=== PATIENT | male | born 1960 | race Hispanic/Latino ===

== ENCOUNTER 2019-03-23 12:21 | Emergency (ER) | payer OTHER ==
[2019-03-23] MEDS ORDERED: NACL 0.9% 1000 ML 1,000 ML IV ONE (12:59)
[2019-03-23] MEDS ORDERED: ANTIVERT PO ONE (13:00)
--- NOTE | 2019-03-23 13:04 | Emergency Department Report ---
ED Dizziness HPI - General Chief Complaint: Dizziness Stated Complaint: Dizziness Time Seen by Provider: 03/23/19 12:52 Source: patient, EMS Mode of arrival: Stretcher Limitations: No Limitations - History of Present Illness Initial Comments: 59-year-old male with history of hypertension, hypercholesterolemia, presents to ED with complaint of dizziness. Patient states he got up and got into his truck, as he began to back out, he experienced dizziness which she describes as "everything spinning." Patient states he then got out of his car, but was u nable to walk well due to his dizziness, so EMS was called. Patient reports one episode of emesis, denies headache. Patient denies extremity weakness or visual changes. Patient states dizziness is exacerbated by moving his head. MD Complaint: dizziness -: This morning Timing: sudden onset Description: "room spinning" History of Same: No History of Trauma: No Severity: severe Improves With: remaining still Worsens With: movement, position Associated Symptoms: denies: chest pain, confusion, cough, fever/chills, shortness of breath, syncope, weakness - Related Data Home Medications Medication Instructions Recorded Confirmed Last Taken AtorvaSTATin [Lipitor] 10 mg PO QHS 03/23/19 03/23/19 03/23/19 FLUoxetine HCL [Prozac] 10 mg PO QDAY 03/23/19 03/23/19 03/23/19 Lisinopril/Hydrochlorothiazide 1 tab PO QDAY 03/23/19 03/23/19 03/23/19 [Zestoretic 20-12.5 mg] amLODIPine [Norvasc] 30 mg PO DAILY 03/23/19 03/23/19 03/23/19 Allergies Allergy/AdvReac Type Severity Reaction Status Date / Time No Known Allergies Allergy Unverified 03/23/19 12:30 ED Review of Systems ROS: Stated complaint: WEAKNESS Other details as noted in HPI Comment: All other systems reviewed and negative Constitutional: denies: chills, fever Eyes: denies: vision change Respiratory: denies: shortness of breath Cardiovascular: denies: chest pain Gastrointestinal: nausea, vomiting Neurological: vertigo. denies: headache, weakness, numbness, paresthesias, confusion ED Past Medical Hx - Past Medical History Hx Hypertension: Yes Additional medical history: High cholesterol, RBBB - Social History Smoking Status: Current Every Day Smoker Substance Use Type: None - Medications Home Medications: Home Medications Medication Instructions Recorded Confirmed Last Taken Type AtorvaSTATin [Lipitor] 10 mg PO QHS 03/23/19 03/23/19 03/23/19 History FLUoxetine HCL [Prozac] 10 mg PO QDAY 03/23/19 03/23/19 03/23/19 History Lisinopril/Hydrochlorothiazide 1 tab PO QDAY 03/23/19 03/23/19 03/23/19 History [Zestoretic 20-12.5 mg] amLODIPine [Norvasc] 30 mg PO DAILY 03/23/19 03/23/19 03/23/19 History ED Physical Exam - General Limitations: No Limitations General appearance: alert, in no apparent distress - Head Head exam: Present: atraumatic, normocephalic - Eye Eye exam: Present: normal appearance, PERRL, EOMI, nystagmus (mild horizontal) - ENT ENT exam: Present: mucous membranes moist - Neck Neck exam: Present: normal inspection, full ROM - Respiratory Respiratory exam: Present: normal lung sounds bilaterally. Absent: respiratory distress - Cardiovascular Cardiovascular Exam: Present: normal rhythm, bradycardia - GI/Abdominal GI/Abdominal exam: Present: soft. Absent: distended, tenderness - Extremities Exam Extremities exam: Present: normal inspection - Neurological Exam Neurological exam: Present: alert, oriented X3, CN II-XII intact, other ([id number] normal; NIHSS= 0). Absent: motor sensory deficit - Psychiatric Psychiatric exam: Present: normal affect, normal mood - Skin Skin exam: Present: warm, dry, intact, normal color ED Course Vital Signs 03/23/19 03/23/19 03/23/19 12:28 12:30 12:32 Temperature 98.1 F Pulse Rate 56 L 60 Respiratory 16 13 Rate Blood Pressure 120/70 124/73 120/70 O2 Sat by Pulse 97 97 Oximetry 03/23/19 03/23/19 03/23/19 12:42 12:45 13:01 Temperature Pulse Rate 59 L 61 Respiratory 6 L 12 Rate Blood Pressure 140/77 140/77 O2 Sat by Pulse 97 96 95 Oximetry 03/23/19 03/23/19 03/23/19 13:15 13:31 13:49 Temperature Pulse Rate 60 61 62 Respiratory 13 12 10 L Rate Blood Pressure 140/77 140/77 140/77 O2 Sat by Pulse 96 97 98 Oximetry 03/23/19 03/23/19 03/23/19 14:01 14:15 14:31 Temperature Pulse Rate 61 61 60 Respiratory 17 17 12 Rate Blood Pressure 140/77 140/77 122/69 O2 Sat by Pulse 97 97 97 Oximetry - Reevaluation(s) Reevaluation #1: 03/23/19 15:08 Pt feeling much better since Meclizine. States dizziness has mostly resolved. Pt comfortable, talking on cell phone. Reevaluation #2: 03/23/19 15:19 Pt ambulated without difficulty. No assistance needed. Gait normal. - Consultations Consultation #1: 03/23/19 15:19 Spoke w/ Elijah secondary english teacher, Dr Krueger. Will transfer pt to [facility]. ED Medical Decision Making - Lab Data Result diagrams: 03/23/19 13:03 03/23/19 13:03 - EKG Data -: EKG Interpreted by Sc EKG shows normal: sinus rhythm, ST-T waves Rate: bradycardia (rate 54) - EKG Data Interpretation: no acute changes, other (RBBB, LAFB) - Radiology Data Radiology results: report reviewed, image reviewed - Medical Decision Making 59-year-old male with vertigo. Vital signs normal. Neuro exam normal with an NIHSS of 0. Patient given meclizine, and reports resolution of symptoms. Able to walk without assistance, gait is normal. CT head shows a hypodensity in the midbrain. This could or could not be related to patient's symptoms. Spoke with Elijah physician on-call, will transfer patient to [facility] for further workup. - Differential Diagnosis benign postitional vertigo, CVA, dehydration Critical care attestation.: If time is entered above; I have spent that time in minutes in the direct care of this critically ill patient, excluding procedure time. ED Disposition Clinical Impression: Vertigo, Abnormal CT of brain, Hypokalemia Disposition: [id number] ANOTHER TYPE HLTHCARE Is pt being admited?: No Condition: Stable Referrals: PRIMARY CARE, [Primary Care Provider] - 3-5 Days Time of Disposition: 15:21
[2019-03-23 13:20] LABS: Basophils # (Auto) 0.1 K/mm3 (0.0-0.1); Basophils % (Auto) 1.2 % (0.0-1.8); Eosinophils # (Auto) 0.1 K/mm3 (0.0-0.4); Eosinophils % (Auto) 1.3 % (0.0-4.3); Hemoglobin 13.8 gm/dl (11.8-15.2); Lymphocytes # (Auto) 1.1 K/mm3 (1.2-5.4); Lymphocytes % (Auto) 15.8 % (13.4-35.0); Mean Corpuscular HGB Conc 35 % (32-34); Mean Corpuscular Volume 88 fl (84-94); Monocytes # (Auto) 0.4 K/mm3 (0.0-0.8); Monocytes % (Auto) 5.8 % (0.0-7.3); Platelet Count 308 K/mm3 (140-440); Red Blood Count 4.46 M/mm3 (3.65-5.03); Red Cell Distribution Width 13.2 % (13.2-15.2)
[2019-03-23 13:36] LABS: BUN/Creatinine Ratio 16; Blood Urea Nitrogen 14 mg/dL (9-20); Calcium 9.1 mg/dL (8.4-10.2); Hemolysis Index 49
[2019-03-23] MEDS ORDERED: K-DUR PO ONE (13:54)
--- NOTE | 2019-03-23 14:10 | Cat Scan Report ---
CT head without contrast INDICATION : Dizziness and history of hypertension. TECHNIQUE: Axial imaging performed from the skull apex through the skull base without the use of con trast. All CT scans at this location are performed using CT dose reduction based on patient size. COMPARISON: None FINDINGS: Parenchyma: Focal hypodensity in the central midbrain and no other abnormal density. No evidence of hemorrhage. Ventricles: Ventricles are normal in size and appear symmetric. Soft tissues: Soft tissues including the orbits appear normal. Bones: No acute osseous abnormality. Sinuses: Sinuses and mastoid air cells are clear. IMPRESSION: Hypodensity in the central midbrain. Recommend MRI for further evaluation. Signer Name: Ayad Goins MD Signed: 03/23/2019 2:06 PM Workstation Name: [id number]
[2019-03-23 15:20] VITALS: BP 122/69
== END 2019-03-23 17:32 | disposition other institution (70) ==
LOC: ED 12:21
DX: R42 Dizziness and giddiness (principal); E87.6 Hypokalemia; R93.0 Abnormal findings on diagnostic imaging of skull and head, not elsewhere classified; I10 Essential (primary) hypertension; E78.00 Pure hypercholesterolemia, unspecified; F17.200 Nicotine dependence, unspecified, uncomplicated; Z79.899 Other long term (current) drug therapy
CPT/HCPCS: 36415; 70450; 80048; 85025; 93005; 93010; 96360; 99285; J7030